=== PATIENT | female | born 1965 | race Two or more races ===

== ENCOUNTER 2023-05-20 10:18 | Outpatient (CLI) | payer OTHER | END 2023-05-20 10:22 | disposition home or self-care (01) | LOC: SONOGRAMA 10:18 | PROVIDERS: ATTEND Pathology Anatomic Pathology & Clinical Pathology | DX: R92.8 Other abnormal and inconclusive findings on diagnostic imaging of breast (principal); N63.11 Unspecified lump in the right breast, upper outer quadrant ==